=== PATIENT | female | born 1935 | race Caucasian/White ===

== ENCOUNTER 2018-04-23 12:29 | Inpatient (IN) ==
[2018-04-23] MEDS ORDERED: fentaNYL Citrate Inj 100 MCG/2 ML Ampul ONE (12:40)
[2018-04-23] MEDS ORDERED: Magnesium Sulfate Inj 2 GM in Sodium Chlor 0.9% Inj 96 ML IV.SIG ONE (12:51)
[2018-04-23 13:20] LABS: Baso # (Auto) 0.1 th/mm3 (0.0-0.2); Baso % (Auto) 0.8 % (0.0-2.0); Eos # (Auto) 0.1 th/mm3 (0.0-0.4); Eos % (Auto) 1.2 % (0.0-4.0); Hematocrit 31.6 % (35.0-46.0); Hemoglobin 10.4 gm/dL (11.6-15.3); Lymph # (Auto) 3.1 th/mm3 (1.0-4.8); Lymph % (Auto) 36.8 % (9.0-44.0); Mean Corpuscular HGB Conc 32.9 % (32.0-36.0); Mean Corpuscular Hemoglobin 21.5 pg (27.0-34.0); Mean Corpuscular Volume 65.5 fL (80.0-100.0); Mean Platelet Volume 8.8 fL (7.0-11.0); Mono # (Auto) 0.8 th/mm3 (0.0-0.9); Mono % (Auto) 9.2 % (0.0-8.0); Neut # (Auto) 4.4 th/mm3 (1.8-7.7); Platelet Count 261 th/mm3 (150-450); Red Blood Count 4.82 mil/mm3 (4.00-5.30); Red Cell Distribution Width 23.3 % (11.6-17.2); White Blood Count 8.5 th/mm3 (4.0-11.0)
--- NOTE | 2018-04-23 13:20 | ED ---
HPI General Chief Complaint: Arrhythmia / Palpitations Stated Complaint: cardiac complaint Time Seen by Provider: 04/23/18 12:58 Source: patient, family and EMS History of Present Illness HPI narrative: 83 year old female s/p AICD placement presents for evaluation after a fall this morning around 2 AM, and an episode of syncope just prior to arrival. Sister states patient was standing and dropped down to the ground without any notice. Found by EMS to be in ventricular tachycardia and was defibrillated by AICD at least 4 times INTELLIGENCE SPECIALIST with transient return to narrow complex rhythm, however arrives in ventricular tachycardia. Context: Reports AICD discharge Arrhythmia history: Reports AICD Associated symptoms: Reports syncope; Denies chest pain, shortness of breath, nausea, vomiting and diaphoresis Related Data Home Medications Medication Instructions Recorded Confirmed atorvastatin 20 mg PO DAILY 04/23/18 04/23/18 clonazepam [Klonopin] 0.5 mg PO BID PRN 04/23/18 04/23/18 clopidogrel [Plavix] 75 mg PO DAILY 04/23/18 04/23/18 furosemide [Lasix] 40 mg PO BID 04/23/18 04/23/18 lisinopril 20 mg PO BID 04/23/18 04/23/18 losartan 100 mg PO DAILY 04/23/18 04/23/18 metoprolol tartrate 50 mg PO BID 04/23/18 04/23/18 potassium chloride 10 meq PO DAILY 04/23/18 04/23/18 telmisartan [Micardis] 40 mg PO DAILY 04/23/18 04/23/18 tramadol 50 mg PO TID PRN 04/23/18 04/23/18 warfarin [Coumadin] 2.5 mg PO 2XWEEK 04/23/18 04/23/18 warfarin [Coumadin] 5 mg PO 5XW 04/23/18 04/23/18 Allergies Allergy/AdvReac Type Severity Reaction Status Date / Time diltiazem [From Cardizem] Allergy Intermediate Redness of Verified 04/23/18 12: 38 Skin PMFSH Medical History Medical History Cardiac defibrillator in place (Acute) HBP (high blood pressure) (Acute) Surgical History Surgical History Hx of prior ablation treatment (Acute) Social History Social History Substance History: No History of Abuse Second Hand Smoke Exposure: No Smoking Status: Never smoker How Often Do You Have a Drink Containing Alcohol: Never Recent Travel in [facility] within the Last 8 Weeks: No Recent Out of Country Travel within the Last 8 Weeks: No Immunization History Tetanus Immunization: >5 Years Exam Narrative Exam Narrative: GENERAL: Awake and alert, conversant, no acute distress SKIN: Focused skin assessment warm/dry. HEAD: Atraumatic. Normocephalic. EYES: Pupils equal and round. No scleral icterus. No injection or drainage. ENT: No nasal bleeding or discharge. Mucous membranes pink and moist. Mallampati 2 NECK: Trachea midline. No JVD. CARDIOVASCULAR: tachycardic, regular RESPIRATORY: No accessory muscle use. Clear to auscultation. Breath sounds equal bilaterally. GASTROINTESTINAL: Abdomen soft, non-tender, nondistended. Hepatic and splenic margins not palpable. MUSCULOSKELETAL: No obvious deformities. No clubbing. No cyanosis. No edema. NEUROLOGICAL: Awake and alert. No obvious cranial nerve deficits. Motor grossly within normal limits. Normal speech. PSYCHIATRIC: Appropriate mood and affect; insight and judgment normal. Procedures Cardioversion 3: Time out performed cardioversion: No Consent: Emergent Anesthesia: Propofol and Fentanyl Description: Patient defibrillated x3 at 300J for ventricular tachycardia Outcome: No Change Complications: none Procedural Sedation Indications: other (defibrillation) Presedation Evaluation: See physical exam ASA Class: ASA 2 Moderate Systemic Disease Fentanyl dose (mcg): 50 IV Propofol Dose (mgs): 60 Patient Tolerated Procedure: well and no complications Interventions: oxygen applied Course Initial Documented Vital Signs Temperature 97.8 F 04/23/18 12:30 Pulse Rate 158 H 04/23/18 12:30 Respiratory Rate 16 04/23/18 12:30 Blood Pressure 124/75 04/23/18 12:30 Pulse Oximetry 96 04/23/18 12:30 Last Documented Vital Signs Temperature 97.8 F 04/23/18 14:57 Pulse Rate 49 L 04/23/18 14:57 Respiratory Rate 16 04/23/18 14:57 Blood Pressure 99/64 L 04/23/18 14:57 Pulse Oximetry 100 04/23/18 14:57 Critical Care Time Critical Care Time: Yes Total Critical Care Time: 60 Attestation: Aggregate critical care time was 60 minutes. Time to perform other separately billable procedures was not included in the critical care time. My time did not include minutes spent treating any other patients simultaneously or on activities that did not directly contribute to the patient's treatment. The services I provided to this patient were to treat and/or prevent clinically significant deterioration that could result in: [60] I provided critical care services requiring my management, as noted below: Chart data review, documentation time, medication orders and management, vital sign assessments/reviewing monitor data, ordering and reviewing lab tests, ordering and interpreting/reviewing x-rays and diagnostic studies, care of the patient and discussion of the patient with the admitting physicians. Medical Decision Making MDM Narrative Medical decision making narrative: 83-year-old female presents in refractory ventricular tachycardia. Patient given amiodarone bolus, defibrillated x3, diltiazem IV, and magnesium without improvement and then spontaneously converted into a junctional bradycardia with a rate of 50. Unclear etiology of ventricular tachycardia. Discussed with Dr. Uribe, patient's african studies professor, recommends discussion with interventional cardiology as an ischemic event could have caused her arrhythmia. We will also interrogate her AICD. Troponin minimally elevated however this could also be related to the defibrillation that patient received. Will cycle troponins to check for an acute ischemic event Medical Screen Exam Complete: Yes Emergency Medical Condition: Yes Medical Records Medical records reviewed: Yes I reviewed the patient's medical records. Lab Data Lab results reviewed: Yes I reviewed the patient's lab results. Result diagrams: 04/23/18 13:00 04/23/18 13:00 Lab Results 04/23/18 04/23/18 04/23/18 Range/Units 13:00 13:00 13:00 WBC 8.5 (4.0-11.0) th/mm3 RBC 4.82 (4.00-5.30) mil/mm3 Hgb 10.4 L (11.6-15.3) gm/dL Hct 31.6 L (35.0-46.0) % MCV 65.5 L (80.0-100.0) fL MCH 21.5 L (27.0-34.0) pg MCHC 32.9 (32.0-36.0) % RDW 23.3 H (11.6-17.2) % Plt Count 261 (150-450) th/mm3 MPV 8.8 (7.0-11.0) fL Neut % (Auto) 52.0 (16.0-70.0) % Lymph % (Auto) 36.8 (9.0-44.0) % [place] % (Auto) 9.2 H (0.0-8.0) % Eos % (Auto) 1.2 (0.0-4.0) % Baso % (Auto) 0.8 (0.0-2.0) % Neut # (Auto) 4.4 (1.8-7.7) th/mm3 Lymph # (Auto) 3.1 (1.0-4.8) th/mm3 [place] # (Auto) 0.8 (0.0-0.9) th/mm3 Eos # (Auto) 0.1 (0.0-0.4) th/mm3 Baso # (Auto) 0.1 (0.0-0.2) th/mm3 WBC Differential . Differential Comment Auto diff final PT (9.8-11.6) sec INR Ratio APTT (23.4-31.7) sec Sodium 142 (136-145) meq/L Potassium 3.4 L (3.5-5.1) meq/L Chloride 107 (98-107) meq/L Carbon Dioxide 25.1 (21.0-32.0) meq/L Anion Gap 10 (5-15) meq/L BUN 26 H (7-18) mg/dL Creatinine 1.28 H (0.50-1.00) mg/dL Estimated GFR 40 L (>89) mL/min Random Glucose 152 H (74-106) mg/dL Calcium 8.6 (8.5-10.1) mg/dL Total Bilirubin 1.4 H (0.2-1.0) mg/dL AST 31 (15-37) U/L ALT 18 (10-53) U/L Alkaline Phosphatase 66 (45-117) U/L Troponin I 0.09 H (0.02-0.05) ng/mL B-Natriuretic Peptide 820 H (0-100) pg/mL Total Protein 6.7 (6.4-8.2) g/dL Albumin 3.6 (3.4-5.0) g/dL 01/09/19 Range/Units 13:00 WBC (4.0-11.0) th/mm3 RBC (4.00-5.30) mil/mm3 Hgb (11.6-15.3) gm/dL Hct (35.0-46.0) % MCV (80.0-100.0) fL MCH (27.0-34.0) pg MCHC (32.0-36.0) % RDW (11.6-17.2) % Plt Count (150-450) th/mm3 MPV (7.0-11.0) fL Neut % (Auto) (16.0-70.0) % Lymph % (Auto) (9.0-44.0) % [place] % (Auto) (0.0-8.0) % Eos % (Auto) (0.0-4.0) % Baso % (Auto) (0.0-2.0) % Neut # (Auto) (1.8-7.7) th/mm3 Lymph # (Auto) (1.0-4.8) th/mm3 [place] # (Auto) (0.0-0.9) th/mm3 Eos # (Auto) (0.0-0.4) th/mm3 Baso # (Auto) (0.0-0.2) th/mm3 WBC Differential Differential Comment PT 18.1 H (9.8-11.6) sec INR 1.8 Ratio APTT 27.7 (23.4-31.7) sec Sodium (136-145) meq/L Potassium (3.5-5.1) meq/L Chloride (98-107) meq/L Carbon Dioxide (21.0-32.0) meq/L Anion Gap (5-15) meq/L BUN (7-18) mg/dL Creatinine (0.50-1.00) mg/dL Estimated GFR (>89) mL/min Random Glucose (74-106) mg/dL Calcium (8.5-10.1) mg/dL Total Bilirubin (0.2-1.0) mg/dL AST (15-37) U/L ALT (10-53) U/L Alkaline Phosphatase (45-117) U/L Troponin I (0.02-0.05) ng/mL B-Natriuretic Peptide (0-100) pg/mL Total Protein (6.4-8.2) g/dL Albumin (3.4-5.0) g/dL Imaging Data Radiologist's impression: Chest X-Ray 04/23/18 12:58 CONCLUSION: , Cystic cardiomegaly otherwise negative ECG Data EKG Prior to Arrival: Yes Attestation: I personally reviewed and interpreted this ECG as follows: Interpretation: 1. Ventricular tachycardia rate of 179, similar to previous 03/30 #2 sinus seamus, rate 50, no ST or T wave changes Discharge Plan Discharge Disposition Patient Disposition: ED Admit(ED Internal Use Only) Discharge Condition Condition: Critical Discharge Order Discharge Orders: ED Use Only Admit Order (Routine); Ordered 04/23/18 Ordered By: Jazmin Portillo Discharge Details Diagnosis: Ventricular tachycardia Physicians Team ED Provider: Jazmin Portillo Primary Care Provider: UNKNOWN, Attending Provider: Tara Chaparro Other Providers: Sagar Shaikh Status ED Status: Admitted Patient
[2018-04-23] MEDS ORDERED: fentaNYL Citrate Inj 100 MCG/2 ML Ampul IV.PUSH ONE (13:22)
[2018-04-23] MEDS ORDERED: Amiodarone Inj 150 MG in Dextrose 5% in Water Inj 97 ML IV.SIG ONE ×2 (13:22)
[2018-04-23 13:28] LABS: Activated Partial Thrombo Time 27.7 sec (23.4-31.7); INR 1.8 Ratio; Prothrombin Time 18.1 sec (9.8-11.6)
[2018-04-23] MEDS ORDERED: Sod Chloride 0.9% Inj 1,000 ML IV.SIG SCH (13:30)
[2018-04-23 13:35] LABS: Alanine Aminotransferase 18 U/L (10-53); Albumin 3.6 g/dL (3.4-5.0); Anion Gap 10 meq/L (5-15); Aspartate Aminotransferase 31 U/L (15-37); Blood Urea Nitrogen 26 mg/dL (7-18); Calcium 8.6 mg/dL (8.5-10.1); Carbon Dioxide 25.1 meq/L (21.0-32.0); Chloride 107 meq/L (98-107); Glomerular Filtration Rate 40 mL/min (>89); Glucose,Random 152 mg/dL (74-106); Potassium 3.4 meq/L (3.5-5.1); Sodium 142 meq/L (136-145)
[2018-04-23 13:37] LABS: Alkaline Phosphatase 66 U/L (45-117); Total Protein 6.7 g/dL (6.4-8.2); Troponin I 0.09 ng/mL (0.02-0.05)
--- NOTE | 2018-04-23 13:42 | XR ---
EXAM DATE: 04/23/2018 1:32 PM EST AGE/SEX: 83 years / Female INDICATIONS: Chest pain, with pressure and AICD went off. CLINICAL DATA: This is the patient's initial encounter. Patient reports that signs and symptoms have been present for 1 day and indicates a pain score of 8/10. MEDICAL/SURGICAL HISTORY: Cardiovascular disease. Myocardial infarction. Pacemaker. COMPARISON: [facility] [place], CHEST SINGLE AP, 03/26/2016. . FINDINGS: Pacer defibrillator in good position. Mild commentated cardiomegaly. No pneumothorax or congestive fa ilure. Mild degenerative changes about both shoulders. CONCLUSION: , Cystic cardiomegaly otherwise negative Electronically signed by: Jon Ruelas MD Board Certified Radiologist 04/23/2018 1:41 PM EST
[2018-04-23] MEDS ORDERED: clonazePAM 0.5 MG Tablet PO PRN (15:01)
[2018-04-23] MEDS ORDERED: Lidocaine/D5W 2000 mg/500 mL 2,000 MG/500 ML BAG IV.SIG ONE (15:25)
[2018-04-23] MEDS ORDERED: Magnesium Sulfate Inj 40 MEQ/10 ML Vial IV.SIG ONE (15:25)
[2018-04-23] MEDS ORDERED: Potassium Chlor 20 mEq Premix 20 MEQ/100 ML PIGGYBACK IV.SIG ONE (15:30)
[2018-04-23] MEDS ORDERED: Potassium Phosphate 500 MG Soluble Tablet PO PRN ×2 (15:31)
[2018-04-23] MEDS ORDERED: Magnesium Sulfate Inj 2 GM in Sodium Chlor 0.9% Inj 96 ML IV.SIG PRN (15:31)
[2018-04-23] MEDS ORDERED: Potassium Phosphate Inj 30 MMOL in Sodium Chlor 0.9% Inj 250 ML IV.SIG PRN (15:31)
[2018-04-23] MEDS ORDERED: Sodium Phosphate Inj 30 MMOL in Sodium Chlor 0.9% Inj 250 ML IV.SIG PRN (15:31)
[2018-04-23] MEDS ORDERED: Acetaminophen 325 MG Tablet PO PRN (15:31)
[2018-04-23] MEDS ORDERED: Potassium Chlor 40 mEq Premix 40 MEQ/100 ML PIGGYBACK IV.SIG PRN ×2 (15:31)
[2018-04-23] MEDS ORDERED: Potassium Chloride 25 MEQ Effervescent Tablet PO PRN (15:31)
[2018-04-23] MEDS ORDERED: Magnesium Oxide 400 MG Tablet PO PRN (15:31)
[2018-04-23] MEDS ORDERED: Bisacodyl 10 MG Supp RECTAL PRN (15:31)
[2018-04-23] MEDS ORDERED: Potassium Chlor 20 mEq Premix 20 MEQ/100 ML PIGGYBACK IV.SIG PRN ×2 (15:31)
[2018-04-23] MEDS ORDERED: Magnesium Sulfate Inj 4 GM in Sodium Chlor 0.9% Inj 92 ML IV.SIG PRN (15:31)
--- NOTE | 2018-04-23 15:32 | CT ---
EXAM DATE: 04/23/2018 3:26 PM EST AGE/SEX: 83 years / Female INDICATIONS: Patient fell CLINICAL DATA: This is the patient's initial encounter. Patient reports that signs and symptoms have been present for 1 day and indicates a pain score of 0/10. MEDICAL/SURGICAL HISTORY: Cardiovascular disease. Pacemaker. RADIATION DOSE: 18.82 CTDI (mGy) COMPARISON: No prior exams available for comparison. TECHNIQUE: Contiguous axial images were obtained using helical multirow detector technique. The vol umetric data was post-processed with multiplanar reconstruction in oblique axial, sagittal, and coron al planes. Using automated exposure control and adjustment of the mA and/or kV according to patient s ize, radiation dose was kept as low as reasonably achievable to obtain optimal diagnostic quality mehdi ges. DICOM format image data is available electronically for review and comparison. FINDINGS: No significant subluxation or soft tissue swelling is seen. There are chronic degenerative change an d pannus formation at the atlantoaxial joint without any significant compromise to the spinal cord. N o definite fracture is identified for technique. C2-C3: No appreciable compromise to the thecal sac, exiting nerve roots are seen. The neural foramin a are patent bilaterally. No appreciable thecal sac stenosis is seen. Slight bulging disc and hypertr ophic changes are seen with indentation on the thecal sac and no significant compromise to the thecal sac or the exiting nerve roots. C3-C4: Slight bulging disc and hypertrophic changes are seen with indentation on the thecal sac and no significant compromise to the thecal sac or the exiting nerve roots. No appreciable compromise t o the thecal sac, exiting nerve roots are seen. The neural foramina are patent bilaterally. No apprec iable thecal sac stenosis is seen. C4-C5: Slight bulging disc and hypertrophic changes are seen with indentation on the thecal sac and no significant compromise to the thecal sac or the exiting nerve roots. No appreciable compromise t o the thecal sac, exiting nerve roots are seen. The neural foramina are patent bilaterally. No apprec iable thecal sac stenosis is seen. C5-C6: No appreciable compromise to the thecal sac, exiting nerve roots are seen. The neural foramin a are patent bilaterally. No appreciable thecal sac stenosis is seen.Slight bulging disc and hypertro phic changes are seen with indentation on the thecal sac and no significant compromise to the thecal sac or the exiting nerve roots. C6-C7: No appreciable compromise to the thecal sac, exiting nerve roots are seen. The neural foramin a are patent bilaterally. No appreciable thecal sac stenosis is seen.Slight bulging disc and hypertro phic changes are seen with indentation on the thecal sac and no significant compromise to the thecal sac or the exiting nerve roots. C7-T1: No appreciable compromise to the thecal sac, exiting nerve roots are seen. The neural foramin a are patent bilaterally. No appreciable thecal sac stenosis is seen.Slight bulging disc and hypertro phic changes are seen with indentation on the thecal sac and no significant compromise to the thecal sac or the exiting nerve roots. CONCLUSION: Degenerative spondylosis without any significant compromise to the exiting nerve roots o r the thecal sac. Electronically signed by: Mikaela Mims MD Board Certified Radiologist 04/23/2018 3:31 PM EST
[2018-04-23 15:37] LABS: Magnesium 1.9 mg/dL (1.5-2.5)
--- NOTE | 2018-04-23 15:39 | CT ---
EXAM DATE: 04/23/2018 3:23 PM EST AGE/SEX: 83 years / Female INDICATIONS: Patient fell, no complaints of pain CLINICAL DATA: This is the patient's initial encounter. Patient reports that signs and symptoms have been present for 1 day and indicates a pain score of 0/10. MEDICAL/SURGICAL HISTORY: Cardiovascular disease. Pacemaker. RADIATION DOSE: 32.16 CTDI (mGy) COMPARISON: No prior exams available for comparison. TECHNIQUE: CT of the head without contrast. Using automated exposure control and adjustment of the mA and/or kV according to patient size, radiation dose was kept as low as reasonably achievable to ob tain optimal diagnostic quality images. DICOM format image data is available electronically for revi ew and comparison. FINDINGS: There is no evidence for intracranial hemorrhage, mass effect, mass lesions, or edema. The visualize d bony structures appear intact. Slight degree of brain atrophy is seen. Slight periventricular whit e matter changes are seen nonspecific mostly consistent with chronic small vessel ischemic changes. There are no signs of acute infarction for technique. CONCLUSION: Slight chronic small vessel ischemic and atrophic changes. Electronically signed by: Mikaela Mims MD Board Certified Radiologist 04/23/2018 3:38 PM EST
[2018-04-23] MEDS ORDERED: Labetalol HCl Inj 100 MG/20 ML Vial IV.PUSH PRN (16:03)
--- NOTE | 2018-04-23 16:14 | P.HPCC ---
History of Present Illness Service: ICU Primary Care Physician: UNKNOWN Chief Complaint: Chest pain History of Present Illness: 83yF with history of atrial fibrillation s/p ablation, CAD s/p stent in 2000, AICD placed at [facility] in 06/2017 (patient is uncertain why) who presented today when her AICD discharged. Her daughter says that the patient was sitting in a chair when she "grabbed her chest and fell over to the side". The patient says that she didn't feel a sudden pain in her chest but felt "like my heart was pounding really hard and like I was being pinched all over my face". She called 911 and was found to be in V tach (with a pulse) on EMS arrival. Her AICD reportedly fired a total of 3x while en route and she arrived to the ED still in stable VT. She was given an amiodarone bolus and received procedural sedation followed by 3 attempts at defibrillation, after which she went into junctional bradycardia. The patient denies any chest pain at present, denies fever or chills, cough, dyspnea, nausea or vomiting, or current palpitations. She also reports that last night she "must have rolled out of bed" and sustained an injury to the right side of her face, is not sure if she lost consciousness, and is on coumadin for A fib. Cold Saw Operator is Dr. Uribe, last routine outpatient visit was 1-2 days ago. Biotronik AICD. Family history is non-contributory. - Diagnosis (1) AICD discharge (2) Ventricular tachycardia Inpatient Certification: I certify that the inpatient services were ordered in accordance with Medicare regulations governing the order. This includes certification that hospital inpatient services are reasonable and necessary and in the case of services not specified as inpatient-only under 42 CFR 419.22(n), that they are appropriately provided as inpatient services in accordance to with the 2-midnight benchmark under 43 CFR 412.3(e) Estimated Total Length of Stay (Days): 3 Plans for Post Hospital Care: Home Review of Systems All other systems reviewed negative except as stated in HPI Constitutional: Denies fever(s) Eyes: Denies loss of vision Cardiovascular: Reports rapid, pounding, or irregular heartbeat, Denies chest pain Respiratory: Denies cough, Denies shortness of breath Gastrointestinal: Denies abdominal pain Musculoskeletal: Denies back pain Neurologic: Denies confusion PMFSH - History History Provided By: Patient - Medical History Medical History: Medical History (Last Reviewed 04/23/18 @ 15:17 by Tara Chaparro DO) Cardiac defibrillator in place HBP (high blood pressure) - Surgical History Surgical History: Surgical History (Last Reviewed 04/23/18 @ 15:17 by Tara Chaparro DO) Hx of prior ablation treatment - Social History I have reviewed the patient's Social History: Yes - Tobacco History Second Hand Smoke Exposure: No Tobacco Use In Past 30 Days: No Smoking Status: Never smoker - Alcohol History How Often Do You Have a Drink Containing Alcohol: Never - Substance Use History Substance History: No History of Abuse - Travel History Recent Travel in the [place] Within the Last 8 Weeks: No Recent Travel Out of the Country Within the Last 8 Weeks: No - Immunization History Tetanus Immunization: >5 Years Medications and Allergies Active Medications: Active Medications Acetaminophen (Tylenol) 650 mg PO Q6H PRN PRN Reason: PAIN 1-10 AND/OR FEVER >101F Al Hydroxide/Mg Hydroxide (Milk [employer] [place]) 30 ml PO Q12H PRN PRN Reason: Mild Constipation Atorvastatin Calcium (Lipitor) 20 mg PO DAILY DIOMEDES Bisacodyl (Dulcolax Supp) 10 mg RECTAL DAILY PRN PRN Reason: SEVERE CONSITIPATION Chlorhexidine Gluconate (Chlorhexidine 2% Cloth) 3 pack TOPICAL DAILY@0400 DIOMEDES Stop: 04/29/18 03:59 Chlorhexidine Gluconate (Chlorhexidine 2% Cloth) 3 pack TOPICAL DAILY@0400 PRN PRN Reason: Extra cloth needed Stop: 04/29/18 03:59 Clonazepam (Klonopin) 0.5 mg PO BID PRN PRN Reason: Anxiety/SOB Clopidogrel Bisulfate (Plavix) 75 mg PO DAILY DIOMEDES Famotidine (Pepcid) 20 mg PO BID DIOMEDES Famotidine (Pepcid Pf Inj) 20 mg IV.PUSH Q12HR DIOMEDES Furosemide (Lasix) 40 mg PO BID DIOMEDES Amiodarone HCl 450 mg/ (Dextrose) 250 mls @ 33.33 mls/hr IV.CONT TITRATE PRN; Protocol PRN Reason: Per Protocol Last Admin: 04/23/18 13:16 Dose: 1 mg/min, 33.33 mls/hr Potassium Chloride (Kcl 20 Meq Premix Inj) 20 meq in 100 mls @ 50 mls/hr IV.SIG ONCE ONE Stop: 04/23/18 17:29 Magnesium Sulfate 4 gm/ Sodium (Chloride) 100 mls @ 50 mls/hr IV.SIG UNSCH PRN PRN Reason: For Magnesium 0.9 - 1.1 mg/dL Potassium Chloride (Kcl 40 Meq Premix Inj) 40 meq in 100 mls @ 25 mls/hr IV.SIG Q2H PRN PRN Reason: For Potassium 2.8 - 3.2 mEq/L Potassium Chloride (Kcl 20 Meq Premix Inj) 20 meq in 100 mls @ 50 mls/hr IV.SIG Q2H PRN PRN Reason: For Potassium 3.3 - 3.5 mEq/L Potassium Chloride (Kcl 40 Meq Premix Inj) 40 meq in 100 mls @ 25 mls/hr IV.SIG UNSCH PRN PRN Reason: For Potassium 3.3 - 3.5 mEq/L Potassium Chloride (Kcl 20 Meq Premix Inj) 20 meq in 100 mls @ 50 mls/hr IV.SIG Q2H PRN PRN Reason: For Potassium 2.8 - 3.2 mEq/L Potassium Phosphate 30 mmol/ (Sodium Chloride) 260 mls @ 42 mls/hr IV.SIG UNSCH PRN PRN Reason: SEE LABEL COMMENTS Sodium Phosphate 30 mmol/ (Sodium Chloride) 260 mls @ 42 mls/hr IV.SIG UNSCH PRN PRN Reason: For Phosphorus < 2.5 mg/dL Magnesium Sulfate 2 gm/ Sodium (Chloride) 100 mls @ 50 mls/hr IV.SIG UNSCH PRN PRN Reason: For Magnesium 1.2 - 1.6 mg/dL Lactulose (Lactulose Liq) 30 ml PO DAILY PRN PRN Reason: SEVERE CONSITIPATION Magnesium Oxide (Mag-Ox) 800 mg PO UNSCH PRN PRN Reason: For Magnesium 1.2 - 1.6 mg/dL Metoprolol Tartrate (Lopressor) 50 mg PO BID DIOMEDES Potassium Bicarb/Potassium Chloride (K-Lyte Cl Eff) 50 meq PO UNSCH PRN PRN Reason: For Potassium 3.3 - 3.5 mEq/L Potassium Phosphate (K-Phos Original) 2,000 mg PO Q4H PRN PRN Reason: Phosphorus Less Than 2.5 mg/dL Potassium Phosphate (K-Phos Original) 2,000 mg PO UNSCH PRN PRN Reason: SEE LABEL COMMENTS Senna/Docusate Sodium (Anastasia-Colace) 1 tab PO BID DIOMEDES Sennosides (Senokot) 17.2 mg PO Q12H PRN PRN Reason: Moderate Constipation Sodium Chloride (Ns Flush) 2 ml IV.FLUSH UNSCH PRN PRN Reason: FLUSH AFTER USING IV ACCESS Sodium Chloride (Ns Flush) 2 ml IV.FLUSH BID DIOMEDES Sodium Chloride (Ns Flush) 2 ml IV.FLUSH PRN PRN PRN Reason: FLUSH AFTER USING IV ACCESS Warfarin Sodium (Coumadin) 2.5 mg PO MoFr DIOMEDES Warfarin Sodium (Coumadin) 5 mg PO 5XW DIOMEDES Allergies Allergy/AdvReac Type Severity Reaction Status Date / Time diltiazem [From [facility] Allergy Intermediate Redness of Verified 04/23/18 12: 38 Skin Home Medications Medication Instructions Recorded Confirmed Type atorvastatin 20 mg PO DAILY 04/23/18 04/23/18 History clonazepam [Klonopin] 0.5 mg PO BID PRN 04/23/18 04/23/18 History clopidogrel [Plavix] 75 mg PO DAILY 04/23/18 04/23/18 History furosemide [Lasix] 40 mg PO BID 04/23/18 04/23/18 History lisinopril 20 mg PO BID 04/23/18 04/23/18 History losartan 100 mg PO DAILY 04/23/18 04/23/18 History metoprolol tartrate 50 mg PO BID 04/23/18 04/23/18 History potassium chloride 10 meq PO DAILY 04/23/18 04/23/18 History telmisartan [Micardis] 40 mg PO DAILY 04/23/18 04/23/18 History tramadol 50 mg PO TID PRN 04/23/18 04/23/18 History warfarin [Coumadin] 2.5 mg PO 2XWEEK 04/23/18 04/23/18 History warfarin [Coumadin] 5 mg PO 5XW 04/23/18 04/23/18 History Results - Labs CBC & Chem 7: 04/23/18 13:00 04/23/18 13:00 Labs: Short CBC 04/23/18 Range/Units 13:00 WBC 8.5 (4.0-11.0) th/mm3 Hgb 10.4 L (11.6-15.3) gm/dL Hct 31.6 L (35.0-46.0) % Plt Count 261 (150-450) th/mm3 BMP 04/23/18 13:00 Sodium 142 Potassium 3.4 L Chloride 107 Carbon Dioxide 25.1 BUN 26 H Creatinine 1.28 H Calcium 8.6 Cardiac Enzymes 04/23/18 Range/Units 13:00 Troponin I 0.09 H (0.02-0.05) ng/mL Liver Function 04/23/18 Range/Units 13:00 Total Bilirubin 1.4 H (0.2-1.0) mg/dL AST 31 (15-37) U/L ALT 18 (10-53) U/L Alkaline Phosphatase 66 (45-117) U/L Albumin 3.6 (3.4-5.0) g/dL - Imaging Impressions Chest X-Ray 04/23/18 12:58 CONCLUSION: , Cystic cardiomegaly otherwise negative Cervical Spine CT 04/23/18 13:15 CONCLUSION: Degenerative spondylosis without any significant compromise to the exiting nerve roots or the thecal sac. Head CT 04/23/18 13:15 CONCLUSION: Slight chronic small vessel ischemic and atrophic changes. - ECG Attestation: I personally reviewed and interpreted this ECG as follows: Interpretation: EKG #1 (12:34 PM) Rate: 200 BPM Rhythm: Wide-complex monomorphic ventricular tachycardia EKG #2 (12:54 PM), post- defibrillation Rate: 50 BPM Rhythm: Ventricular paced [place]: Left Exam Vital signs: Vital Signs 04/23/18 12:30 04/23/18 12:45 04/23/18 12:58 Temperature 97.8 F 97.8 F Pulse Rate 156 H 157 H 50 L Respiratory Rate 16 20 20 Blood Pressure 124/75 93/56 L 96/56 L Pulse Oximetry 98 99 99 04/23/18 13:01 04/23/18 13:27 04/23/18 13:37 Temperature 97.8 F 97.8 F Pulse Rate 56 L 50 L 50 L Respiratory Rate 20 20 19 Blood Pressure 91/52 L 95/52 L 102/52 L Pulse Oximetry 99 100 100 04/23/18 14:27 04/23/18 14:57 Temperature 97.8 F 97.8 F Pulse Rate 50 L 49 L Respiratory Rate 16 16 Blood Pressure 96/55 L 99/64 L Pulse Oximetry 99 100 Intake & Output 04/22/18 04/23/18 04/23/18 18:59 06:59 18:59 Intake Total 1200 / 1200 Balance 1200 / 1200 Weight 85.275 kg Intake: IV 1200 / 1200 Cordarone Inj 150 MG In D5W Inj 100 / 100 97 ML @ 600 mls/hr IV.SIG ONCE ONE Rx#:[id number] Magnesium Sulfate Inj 2 GM In 100 / 100 NS Inj 96 ML @ 50 mls/hr IV.SIG ONCE ONE Rx#:[id number] NS Inj 1,000 ML @ 1000 mls/hr 1000 / 1000 IV.SIG BOLUS DIOMEDES Rx#:[id number] Narrative: GEN: Well-appearing elderly female sitting up in bed, no acute distress HEENT: Subtle ecchymosis to right face, no facial bone tenderness or deformity, PERRL, no hyphema or proptosis, EOMI NECK: Trachea midline CARDIO: Julien to 50s, V-paced on service or work dispatcher. AICD present in left upper chest, non-tender, well-healed incision. PULM: Clear to auscultation bilaterally ABD/GI: Soft, non-tender in all quadrants EXT/MSK: 2+ pitting edema to knees bilaterally, no calf tenderness SKIN: Warm and well-perfused, no rashes or lesions NEURO: Awake and alert, answers questions appropriately, no slurred speech or aphasia, follows commands, moves all extremities, no focal neuro deficits PSYCH: Appropriate affect Caprini VTE Risk Assessment Caprini VTE Risk Assessment: Moderate/High Risk (score >= 2) VTE Pharmacological Exception Reason: Coagulopathy,INR elevated Caprini Risk Assessment Model: Point Value = 1 Point Value = 2 Point Value = 3 Point Value = 5 Age 41-60 Minor surgery BMI > 25 kg/m2 Swollen legs Varicose veins or History of unexplained or recurrent spontaneous Oral contraceptives or hormone replacement Sepsis (< 1 month) Serious lung disease, including pneumonia (< 1 month) Abnormal pulmonary function Acute myocardial infarction Congestive heart failure (< 1 month) History of inflammatory bowel disease Medical patient at bed rest Age 61-74 Arthroscopic surgery Major open surgery (> 45 min) Laparoscopic surgery (> 45 min) Malignancy Confined to bed (> 72 hours) Immobilizing plaster cast Central venous access Age >= 75 History of VTE Family history of VTE Factor V Leiden Prothrombin [id number] Lupus anticoagulant Anticardiolipin antibodies Elevated serum homocysteine Heparin-induced thrombocytopenia Other congenital or acquired thrombophilia Stroke (< 1 month) Elective arthroplasty Hip, pelvis, or leg fracture Acute spinal cord injury (< 1 month) Prophylaxis Regimen: Total Risk Factor Score Risk Level Prophylaxis Regimen 0-1 Low Early ambulation 2 Moderate Order ONE of the following: *Sequential Compression Device (SCD) *Heparin 5000 units SQ BID 3-4 Higher Order ONE of the following medications: *Heparin 5000 units SQ TID *Enoxaparin/Lovenox 40 mg SQ daily (WT < 150 kg, CrCl > 30 mL/min) *Enoxaparin/Lovenox 30 mg SQ daily (WT < 150 kg, CrCl > 10-29 mL/min) *Enoxaparin/Lovenox 30 mg SQ BID (WT < 150 kg, CrCl > 30 mL/min) AND/OR *Sequential Compression Device (SCD) 5 or more Highest Order ONE of the following medications: *Heparin 5000 units SQ TID (Preferred with Epidurals) *Enoxaparin/Lovenox 40 mg SQ daily (WT < 150 kg, CrCl > 30 mL/min) *Enoxaparin/Lovenox 30 mg SQ daily (WT < 150 kg, CrCl > 10-29 mL/min) *Enoxaparin/Lovenox 30 mg SQ BID (WT < 150 kg, CrCl > 30 mL/min) AND *Sequential Compression Device (SCD) Assessment and Plan - Problem List (1) AICD discharge Code(s): Z45.02 - Encounter for adjustment and management of automatic implantable cardiac defibrillator Status: Acute (2) Ventricular tachycardia Code(s): I47.2 - Ventricular tachycardia Status: Acute - Assessment and Plan Plan: 83yF presenting with VT storm and multiple AICD discharges NEURO: Closed head injury, on anticoagulation -CTH and C spine ordered in ED show no traumatic injuries -Tylenol PRN headache CARDIO: Ventricular tachycardia storm Multiple AICD discharges History of CAD s/p stent History of atrial fibrillation History of essential hypertension Dyslipidemia -ED physician spoke with Dr. Uribe (patient's regular siebel consultant) and Dr. Shaikh (interventional); patient has no emergent need for cardiac cath but will likely need an ischemic workup prior to discharge -B[employer]ronik rep interrogated patient's device- she was in VT storm for approximately 2 hrs, received a total of 12 shocks (5 with success, 9 unsuccessful). * Rep changed her settings so 30J (lower dose shocks) were eliminated and she will now receive 40J shock instead. He also reversed polarity of shocks as this appeared to be more effective at converting her rhythm. -EKGs prior to and following defibrillation reviewed; she is now ventricular paced in the 50s -Troponin 0.09 on admission but patient received multiple attempts at cardioversion/ defibrillation -Obtain 2D echo to eval for EF/ wall motion abnormalities -Continue amiodarone gtt -Continue home beta jaun -Continue coumadin and plavix -Continue statin -Hold KAREEN-I/ ARB for today (see below) -Keep K+ >4.0, Mg++ >2.0 PULM: -No active issues -Incentive spirometer F/E/N, RENAL: Mild hypokalemia Acute vs chronic kidney insufficiency -K+ and Mg++ repleted in ED -ICU electrolyte protocol -Creat 1.28, patient does not know what her baseline kidney function is. Received 1L NS bolus in ED. Recheck in AM. Hold KAREEN-I/ARB -Cardiac diet now, NPO at midnight in case patient needs elective cardiac cath tomorrow PROPH: -PPI -SCDs, coumadin OVERALL: This patient is at risk for continued/ recurrent life-threatening arrhythmia and requires close monitoring in intensive care unit. She had been given amiodarone, her lytes have been corrected, and her AICD settings have been adjusted. If she remains without significant arrhythmias overnight, she can be transferred to the hospitalist service. Counseling/ Coordination of Care: This patient is critically ill with impairment of one or more vital organ systems with a high probability of imminent or life-threatening deterioration. High-complexity medical decision making was required to support vital organ function and/ or prevent deterioration of the patient's condition. Total critical care time spent is 31 minutes giving full attention to this patient. This includes examining the patient, gathering history from someone other than the patient (i.e. chart review), discussing the patient's care with other providers, reviewing the results of all labs and imaging, continuation of anti-arrhythmics, and documentation. Amount of time is separate from teaching, counseling the patient and/or family, and exclusive of procedures. Code Status: Full
[2018-04-23 16:58] LABS: Free T4 (Free Thyroxine) 1.36 ng/dL (0.76-1.46); Thyroid Stimulating Hormone 1.73 uIU/mL (0.358-3.740)
[2018-04-23] MEDS: Furosemide 40 MG Tablet PO SCH (20:12)
[2018-04-23] MEDS: Metoprolol Tartrate 50 MG Tablet PO SCH (20:12)
[2018-04-23] MEDS: Senna/Docusate Sodium 8.6/50 MG Tablet PO SCH (20:13)
[2018-04-23] MEDS ORDERED: Lisinopril 20 MG Tablet PO SCH (21:00)
[2018-04-23] MEDS ORDERED: Famotidine PF Inj 20 MG/2 ML Vial IV.PUSH SCH (21:00)
[2018-04-23] MEDS ORDERED: Famotidine 20 MG Tablet PO SCH (21:00)
[2018-04-24] MEDS: Chlorhexidine Gluconate 2% 1 Pack (2 Cloths) TOPICAL SCH (03:53)
[2018-04-24] MEDS ORDERED: Chlorhexidine Gluconate 2% 1 Pack (2 Cloths) TOPICAL PRN (04:00)
[2018-04-24 06:09] LABS: Baso % (Auto) 0.5 % (0.0-2.0); Eos % (Auto) 0.1 % (0.0-4.0); Hematocrit 35.7 % (35.0-46.0); Hemoglobin 10.4 gm/dL (11.6-15.3); Lymph # (Auto) 1.9 th/mm3 (1.0-4.8); Lymph % (Auto) 19.5 % (9.0-44.0); Mean Corpuscular Hemoglobin 19.4 pg (27.0-34.0); Mean Corpuscular Volume 66.4 fL (80.0-100.0); Mean Platelet Volume 8.6 fL (7.0-11.0); Mono # (Auto) 1.1 th/mm3 (0.0-0.9); Mono % (Auto) 11.3 % (0.0-8.0); Neut # (Auto) 6.8 th/mm3 (1.8-7.7); Neut % (Auto) 68.6 % (16.0-70.0); Platelet Count 276 th/mm3 (150-450); Red Blood Count 5.38 mil/mm3 (4.00-5.30); Red Cell Distribution Width 23.2 % (11.6-17.2); White Blood Count 9.9 th/mm3 (4.0-11.0)
[2018-04-24 06:15] LABS: Mean Corpuscular HGB Conc 29.2 % (32.0-36.0)
[2018-04-24 06:17] LABS: Activated Partial Thrombo Time 29.3 sec (23.4-31.7); INR 2.4 Ratio; Prothrombin Time 24.1 sec (9.8-11.6)
[2018-04-24 06:43] LABS: Alanine Aminotransferase 20 U/L (10-53); Albumin 3.7 g/dL (3.4-5.0); Alkaline Phosphatase 68 U/L (45-117); Anion Gap 14 meq/L (5-15); Aspartate Aminotransferase 37 U/L (15-37); Blood Urea Nitrogen 30 mg/dL (7-18); Calcium 9.4 mg/dL (8.5-10.1); Carbon Dioxide 20.5 meq/L (21.0-32.0); Chloride 106 meq/L (98-107); Glomerular Filtration Rate 31 mL/min (>89); Glucose,Random 95 mg/dL (74-106); Magnesium 2.1 mg/dL (1.5-2.5); Phosphorus 4.7 mg/dL (2.5-4.9); Potassium 4.3 meq/L (3.5-5.1); Sodium 140 meq/L (136-145); Total Protein 6.5 g/dL (6.4-8.2)
--- NOTE | 2018-04-24 08:05 | P.CONCA ---
History of Present Illness Primary Care Provider: UNKNOWN Chief Complaint: Chest pain History of Present Illness: 83-year-old female with ischemic cardiomyopathy, recurrent VT s/p AICD with Dr. Mckenzie 05/2017, paroxysmal A. fib on warfarin, HTN, HLD, CKD. Patient reports she remembers sitting in a chair yesterday and felt the sudden jolt to her chest and states that she fell over in her chair. She remembers being shocked by her to fibril 3 times as well in the ambulance in route. She is found to be in PT in the ED with successful defibrillation, started on amiodarone gtt. Patient reports she is felt well overnight with no chest pain, shortness of breath, palpitations. Telemetry monitoring currently shows NSR, 3 episodes of NSVT noted overnight 5 beats, 3 beats, 12 beats. The patient has been complaining of dyspnea on exertion over the past few months. In February she had echocardiogram with EF 40%, global hypokinesis with regional wall motion abnormalities. Lexiscan in February showed no evidence of ischemia. She saw Dr. Uribe as outpatient this week and her Lasix dose was increased due to lower extremity swelling, no noted events on defibrillator check at that time. Lower extremity swelling improved. She denies any recent illness. No significant electrode abnormalities upon admission. Review of Systems All other systems reviewed negative except as stated in HPI [facility] - History History Provided By: Patient, Medical Record - Medical History Medical History: Medical History (Last Updated 04/24/18 @ 08:03 by LUL Martinez) CAD (coronary artery disease) Cardiac defibrillator in place HBP (high blood pressure) History of MRSA infection Onset Date: ~04/23/18 Ischemic cardiomyopathy Paroxysmal atrial fibrillation - Surgical History Surgical History: Surgical History (Last Updated 04/24/18 @ 08:03 by LUL Martinez) AICD (automatic cardioverter/defibrillator) present Hx of prior ablation treatment - Tobacco History Second Hand Smoke Exposure: No Tobacco Use In Past 30 Days: No Smoking Status: Never smoker - Alcohol History How Often Do You Have a Drink Containing Alcohol: Never - Substance Use History Substance History: No History of Abuse - Travel History Recent Travel in the [place] Within the Last 8 Weeks: No Recent Travel Out of the Country Within the Last 8 Weeks: No - Immunization History Tetanus Immunization: >5 Years Hx Influenza Vaccine This Season: No Medications and Allergies Allergies Allergy/AdvReac Type Severity Reaction Status Date / Time diltiazem [From [facility]] Allergy Intermediate Redness of Verified 04/23/18 12: 38 Skin Home Medications Medication Instructions Recorded Confirmed Type atorvastatin 20 mg PO DAILY 04/23/18 04/23/18 History clonazepam [Klonopin] 0.5 mg PO BID PRN 04/23/18 04/23/18 History clopidogrel [Plavix] 75 mg PO DAILY 04/23/18 04/23/18 History furosemide [Lasix] 40 mg PO BID 04/23/18 04/23/18 History lisinopril 20 mg PO BID 04/23/18 04/23/18 History losartan 100 mg PO DAILY 04/23/18 04/23/18 History metoprolol tartrate 50 mg PO BID 04/23/18 04/23/18 History potassium chloride 10 meq PO DAILY 04/23/18 04/23/18 History telmisartan [Micardis] 40 mg PO DAILY 04/23/18 04/23/18 History tramadol 50 mg PO TID PRN 04/23/18 04/23/18 History warfarin [Coumadin] 2.5 mg PO 2XWEEK 04/23/18 04/23/18 History warfarin [Coumadin] 5 mg PO 5XW 04/23/18 04/23/18 History Active Medications: Active Medications Acetaminophen (Tylenol) 650 mg PO Q6H PRN PRN Reason: PAIN 1-10 AND/OR FEVER >101F Last Admin: 04/24/18 01:21 Dose: 650 mg Al Hydroxide/Mg Hydroxide (Milk Of Alvaro Liq) 30 ml PO Q12H PRN PRN Reason: Mild Constipation Atorvastatin Calcium (Lipitor) 20 mg PO DAILY DIOMEDES Bisacodyl (Dulcolax Supp) 10 mg RECTAL DAILY PRN PRN Reason: SEVERE CONSITIPATION Chlorhexidine Gluconate (Chlorhexidine 2% Cloth) 3 pack TOPICAL DAILY@0400 [facility] Stop: 04/29/18 03:59 Last Admin: 04/24/18 03:53 Dose: 3 pack Chlorhexidine Gluconate (Chlorhexidine 2% Cloth) 3 pack TOPICAL DAILY@0400 PRN PRN Reason: Extra cloth needed Stop: 04/29/18 03:59 Clonazepam (Klonopin) 0.5 mg PO BID PRN PRN Reason: Anxiety/SOB Clopidogrel Bisulfate (Plavix) 75 mg PO DAILY [facility] Famotidine (Pepcid) 20 mg PO BID [facility] Last Admin: 04/23/18 20:13 Dose: 20 mg Famotidine (Pepcid Pf Inj) 20 mg IV.PUSH Q12HR [facility] Last Admin: 04/23/18 20:13 Dose: Not Given Furosemide (Lasix) 40 mg PO BID [facility] Last Admin: 04/23/18 20:12 Dose: 40 mg Amiodarone HCl 450 mg/ (Dextrose) 250 mls @ 33.33 mls/hr IV.CONT TITRATE PRN; Protocol PRN Reason: Per Protocol Last Admin: 04/23/18 22:33 Dose: 0.5 mg/min, 16.66 mls/hr Magnesium Sulfate 4 gm/ Sodium (Chloride) 100 mls @ 50 mls/hr IV.SIG UNSCH PRN PRN Reason: For Magnesium 0.9 - 1.1 mg/dL Potassium Chloride (Kcl 40 Meq Premix Inj) 40 meq in 100 mls @ 25 mls/hr IV.SIG Q2H PRN PRN Reason: For Potassium 2.8 - 3.2 mEq/L Potassium Chloride (Kcl 20 Meq Premix Inj) 20 meq in 100 mls @ 50 mls/hr IV.SIG Q2H PRN PRN Reason: For Potassium 3.3 - 3.5 mEq/L Potassium Chloride (Kcl 40 Meq Premix Inj) 40 meq in 100 mls @ 25 mls/hr IV.SIG UNSCH PRN PRN Reason: For Potassium 3.3 - 3.5 mEq/L Potassium Chloride (Kcl 20 Meq Premix Inj) 20 meq in 100 mls @ 50 mls/hr IV.SIG Q2H PRN PRN Reason: For Potassium 2.8 - 3.2 mEq/L Potassium Phosphate 30 mmol/ (Sodium Chloride) 260 mls @ 42 mls/hr IV.SIG UNSCH PRN PRN Reason: SEE LABEL COMMENTS Sodium Phosphate 30 mmol/ (Sodium Chloride) 260 mls @ 42 mls/hr IV.SIG UNSCH PRN PRN Reason: For Phosphorus < 2.5 mg/dL Magnesium Sulfate 2 gm/ Sodium (Chloride) 100 mls @ 50 mls/hr IV.SIG UNSCH PRN PRN Reason: For Magnesium 1.2 - 1.6 mg/dL Labetalol HCl (Trandate Inj) 10 mg IV.PUSH Q6H PRN PRN Reason: SBP>180, DBP>100, HR>65 Lactulose (Lactulose Liq) 30 ml PO DAILY PRN PRN Reason: SEVERE CONSITIPATION Magnesium Oxide (Mag-Ox) 800 mg PO UNSCH PRN PRN Reason: For Magnesium 1.2 - 1.6 mg/dL Metoprolol Tartrate (Lopressor) 50 mg PO BID [facility] Last Admin: 04/23/18 20:12 Dose: 50 mg Ondansetron HCl (Zofran Inj) 4 mg IV.PUSH Q6H PRN PRN Reason: NAUSEA Last Admin: 04/23/18 22:32 Dose: 4 mg Potassium Bicarb/Potassium Chloride (K-Lyte Cl Eff) 50 meq PO UNSCH PRN PRN Reason: For Potassium 3.3 - 3.5 mEq/L Potassium Phosphate (K-Phos Original) 2,000 mg PO Q4H PRN PRN Reason: Phosphorus Less Than 2.5 mg/dL Potassium Phosphate (K-Phos Original) 2,000 mg PO UNSCH PRN PRN Reason: SEE LABEL COMMENTS Senna/Docusate Sodium (Anastasia-Colace) 1 tab PO BID [facility] Last Admin: 04/23/18 20:13 Dose: Not Given Sennosides (Senokot) 17.2 mg PO Q12H PRN PRN Reason: Moderate Constipation Sodium Chloride (Ns Flush) 2 ml IV.FLUSH BID [facility] Last Admin: 04/23/18 20:13 Dose: 2 ml Sodium Chloride (Ns Flush) 2 ml IV.FLUSH PRN PRN PRN Reason: FLUSH AFTER USING IV ACCESS Warfarin Sodium (Coumadin) 2.5 mg PO [facility] Warfarin Sodium (Coumadin) 5 mg PO SuTuWeThSa [facility] Last Admin: 04/23/18 16:15 Dose: 5 mg Exam Vital signs: Vital Signs 04/23/18 12:30 04/23/18 12:45 04/23/18 12:58 Temperature 97.8 F 97.8 F Pulse Rate 156 H 157 H 50 L Respiratory Rate 16 20 20 Blood Pressure 124/75 93/56 L 96/56 L Pulse Oximetry 98 99 99 04/23/18 13:01 04/23/18 13:27 04/23/18 13:37 Temperature 97.8 F 97.8 F Pulse Rate 56 L 50 L 50 L Respiratory Rate 20 20 19 Blood Pressure 91/52 L 95/52 L 102/52 L Pulse Oximetry 99 100 100 04/23/18 14:27 04/23/18 14:57 04/23/18 16:10 Temperature 97.8 F 97.8 F 97.8 F Pulse Rate 50 L 49 L 53 L Respiratory Rate 16 16 17 Blood Pressure 96/55 L 99/64 L 136/70 Pulse Oximetry 99 100 99 04/23/18 17:00 04/23/18 17:48 04/23/18 18:00 Temperature 97.8 F 98.6 F Pulse Rate 62 65 58 L Respiratory Rate 16 36 H 30 H Blood Pressure 110/58 L 117/80 Pulse Oximetry 98 95 96 04/23/18 18:31 04/23/18 19:00 04/23/18 20:00 Temperature 97.6 F Pulse Rate 109 H 62 94 H Respiratory Rate 49 H 23 28 H Blood Pressure 121/89 128/72 141/67 H Pulse Oximetry 95 100 100 04/23/18 20:01 04/23/18 20:30 04/23/18 21:00 Temperature Pulse Rate 64 64 67 Respiratory Rate 25 H 35 H 34 H Blood Pressure 137/92 H 147/84 H Pulse Oximetry 99 100 99 04/23/18 21:01 04/23/18 21:31 04/23/18 22:00 Temperature Pulse Rate 67 66 66 Respiratory Rate 30 H 33 H 25 H Blood Pressure 147/84 H 147/74 H 139/77 Pulse Oximetry 92 L 96 98 04/23/18 22:30 04/23/18 23:00 04/23/18 23:30 Temperature Pulse Rate 67 65 63 Respiratory Rate 40 H 25 H 26 H Blood Pressure 140/69 126/70 127/70 Pulse Oximetry 100 97 96 04/24/18 00:00 04/24/18 00:01 04/24/18 00:30 Temperature 98.2 F Pulse Rate 63 62 61 Respiratory Rate 23 27 H 23 Blood Pressure 142/67 H 142/67 H 142/65 H Pulse Oximetry 96 99 97 04/24/18 01:00 04/24/18 01:01 04/24/18 01:31 Temperature Pulse Rate 66 68 67 Respiratory Rate 27 H 32 H 24 Blood Pressure 148/76 H 148/76 H 158/72 H Pulse Oximetry 93 L 95 99 04/24/18 02:00 04/24/18 02:02 04/24/18 02:30 Temperature Pulse Rate 69 65 66 Respiratory Rate 35 H 34 H 23 Blood Pressure 130/97 H 130/97 H 133/90 Pulse Oximetry 90 L 91 L 94 L 04/24/18 03:00 04/24/18 03:31 04/24/18 04:00 Temperature 97.9 F Pulse Rate 67 65 69 Respiratory Rate 24 24 19 Blood Pressure 149/80 H 138/83 148/98 H Pulse Oximetry 99 90 L 96 04/24/18 04:31 04/24/18 05:00 04/24/18 05:01 Temperature Pulse Rate 68 66 67 Respiratory Rate 33 H 27 H 24 Blood Pressure 118/80 152/91 H 152/91 H Pulse Oximetry 94 L 96 98 04/24/18 05:30 04/24/18 06:00 04/24/18 06:30 Temperature Pulse Rate 64 64 66 Respiratory Rate 21 28 H 20 Blood Pressure 130/70 130/75 131/68 Pulse Oximetry 98 89 L 96 04/24/18 07:00 Temperature Pulse Rate 65 Respiratory Rate 26 H Blood Pressure 132/64 Pulse Oximetry 94 L Intake & Output 04/23/18 04/24/18 04/24/18 18:59 06:59 18:59 Intake Total 1550 / 1550 400 / 400 Output Total 0 / 0 300 / 300 Balance 1550 / 1550 100 / 100 Weight 202 lb 13.204 oz 201 lb 11.567 oz Intake: IV 1200 / 1200 350 / 350 Cordarone Inj 450 MG In D5W Inj 250 / 250 241 ML @ 1 MG/MIN 33.33 mls/hr IV.CONT TITRATE PRN Rx#: [id number] Cordarone Inj 150 MG In D5W Inj 100 / 100 97 ML @ 600 mls/hr IV.SIG ONCE ONE Rx#:[id number] Magnesium Sulfate Inj 2 GM In 100 / 100 NS Inj 96 ML @ 50 mls/hr IV.SIG ONCE ONE Rx#:[id number] KCl 20 mEq Premix Inj 20 meq In 100 / 100 100 ml @ 50 mls/hr IV.SIG ONCE ONE Rx#:[id number] NS Inj 1,000 ML @ 1000 mls/hr 1000 / 1000 IV.SIG BOLUS DIOMEDES Rx#:[id number] Oral 350 / 350 50 / 50 Output: Urine 0 / 0 300 / 300 Other: # Voids 2 Date of Last Bowel Movement 04/22/18 Weight On Admission 202 lb 13.204 oz Narrative: GENERAL: Well-developed well-nourished. In no acute distress. NECK: No carotid bruits. No JVD. CARDIOVASCULAR: Regular rate and rhythm. No murmur appreciated. RESPIRATORY: No accessory muscle use. Clear to auscultation. Breath sounds equal bilaterally. MUSCULOSKELETAL: No clubbing or cyanosis. No edema. NEUROLOGICAL: Awake and alert. Normal speech. Results 04/24/18 05:30 04/24/18 05:30 Cardiac Enzymes 04/23/18 04/23/18 04/23/18 Range/Units 13:00 13:00 16:28 AST 31 (15-37) U/L Troponin I 0.09 H 0.25 H D (0.02-0.05) ng/mL B-Natriuretic Peptide 820 H (0-100) pg/mL 04/23/18 04/24/18 Range/Units 23:10 05:30 AST 37 (15-37) U/L Troponin I 0.38 H D (0.02-0.05) ng/mL B-Natriuretic Peptide (0-100) pg/mL Coagulation 04/23/18 04/23/18 04/24/18 Range/Units 13:00 13:00 05:30 PT 18.1 H 24.1 H (9.8-11.6) sec APTT 27.7 29.3 (23.4-31.7) sec B-Natriuretic Peptide 820 H (0-100) pg/mL CBC 04/23/18 04/24/18 Range/Units 13:00 05:30 WBC 8.5 9.9 (4.0-11.0) th/mm3 RBC 4.82 5.38 H (4.00-5.30) mil/mm3 Hgb 10.4 L 10.4 L (11.6-15.3) gm/dL Hct 31.6 L 35.7 (35.0-46.0) % Plt Count 261 276 (150-450) th/mm3 Neut # (Auto) 4.4 6.8 (1.8-7.7) th/mm3 Lymph # (Auto) 3.1 1.9 (1.0-4.8) th/mm3 Alfalfa # (Auto) 0.8 1.1 H (0.0-0.9) th/mm3 Eos # (Auto) 0.1 0.0 (0.0-0.4) th/mm3 Baso # (Auto) 0.1 0.0 (0.0-0.2) th/mm3 Comprehensive Metabolic Panel 04/23/18 04/24/18 Range/Units 13:00 05:30 Sodium 142 140 (136-145) meq/L Potassium 3.4 L 4.3 D (3.5-5.1) meq/L Chloride 107 106 (98-107) meq/L Carbon Dioxide 25.1 20.5 L (21.0-32.0) meq/L BUN 26 H 30 H (7-18) mg/dL Creatinine 1.28 H 1.61 H (0.50-1.00) mg/dL Calcium 8.6 9.4 D (8.5-10.1) mg/dL AST 31 37 (15-37) U/L ALT 18 20 (10-53) U/L Alkaline Phosphatase 66 68 (45-117) U/L Total Protein 6.7 6.5 (6.4-8.2) g/dL Albumin 3.6 3.7 (3.4-5.0) g/dL Intake and Output 04/23/18 04/24/18 04/24/18 22:59 06:59 14:59 Intake Total 600 / 600 150 / 150 Output Total 0 / 0 300 / 300 Balance 600 / 600 -150 / -150 Intake: IV 250 / 250 100 / 100 Cordarone Inj 450 MG In D5W Inj 250 / 250 241 ML @ 1 MG/MIN 33.33 mls/hr IV.CONT TITRATE PRN Rx#: [id number] KCl 20 mEq Premix Inj 20 meq In 100 / 100 100 ml @ 50 mls/hr IV.SIG ONCE ONE Rx#:[id number] Oral 350 / 350 50 / 50 Output: Urine 0 / 0 300 / 300 Other: # Voids 2 Date of Last Bowel Movement 04/22/18 04/22/18 Weight 202 lb 13.204 oz 201 lb 11.567 oz Weight On Admission 202 lb 13.204 oz - Imaging and Cardiology Imaging: Impressions Chest X-Ray 04/23/18 12:58 CONCLUSION: , Cystic cardiomegaly otherwise negative Cervical Spine CT 04/23/18 13:15 CONCLUSION: Degenerative spondylosis without any significant compromise to the exiting nerve roots or the thecal sac. Head CT 04/23/18 13:15 CONCLUSION: Slight chronic small vessel ischemic and atrophic changes. Assessment and Plan - Plan 83-year-old female with ischemic cardiomyopathy, recurrent VT s/p AICD with Dr. Mckenzie 05/2017, paroxysmal A. fib on warfarin, HTN, HLD, CKD who presented with recurrent VT with ultimately successful defibrillation. Ventricular tachycardia: Recent normal ischemic workup. Continue metoprolol and amiodarone gtt. Consult electrophysiology. Paroxysmal atrial fibrillation: Hold warfarin pending possible EP procedure. Discussed Condition With: Patient with RN at bedside, hospitalist, Dr. Gonsales - Attending Attestation recent ischemic workup negative ICD in place recurrent VT on amio gtt consult EP will sign off call with questions
--- NOTE | 2018-04-24 08:23 | P.PNIM ---
Subjective Interval history: asking for food. no sob. feeling better Physical Exam Vital signs: Last Vital Signs Temp 97.9 F 04/24/18 04:00 Pulse 65 04/24/18 07:00 Resp 26 H 04/24/18 07:00 BP 132/64 04/24/18 07:00 Pulse Ox 94 L 04/24/18 07:00 Narrative: heart irreg lung cta abd s/nt ext no edema Results Labs CBC & Chem 7: 04/24/18 05:30 04/24/18 05:30 Assessment and Plan Assessment (1) Ventricular tachycardia: Code(s): I47.2 - Ventricular tachycardia Status: Acute (2) AICD discharge: Code(s): Z45.02 - Encounter for adjustment and management of automatic implantable cardiac defibrillator Status: Acute (3) Afib: Code(s): I48.91 - Unspecified atrial fibrillation Status: Chronic (4) CAD (coronary artery disease): Code(s): I25.10 - Atherosclerotic heart disease of [place] coronary artery without angina pectoris Status: Chronic (5) CKD (chronic kidney disease) stage 3, GFR 30-59 ml/min: Code(s): N18.3 - Chronic kidney disease, stage 3 (moderate) Status: Chronic Plan Ventricular tachycardia Multiple AICD discharges History of CAD s/p stenting atrial fibrillation hypertension Dyslipidemia ckd 3 -Pt had recent echo EF 40% and nml lexiscan neg for ischemia in February per cardiology. -[employer] rep interrogated patient's device- she was in VT storm for approximately 2 hrs, received a total of 12 shocks (5 with success, 9 unsuccessful). Rep changed her settings so 30J (lower dose shocks) were eliminated and she will now receive 40J shock instead. He also reversed polarity of shocks as this appeared to be more effective at converting her rhythm.s -Troponin elevated but patient received multiple attempts at cardioversion/ defibrillation -Continue amiodarone gtt -Continue home beta jaun -cont plavix. coumadin to be held per cardiology -Continue statin -monitor in ICU Progress Note: Quality VTE Deep Vein Thrombosis/Pulmonary Embolism Present on Admission: No
[2018-04-24] MEDS ORDERED: TELMISARTAN 40 MG PO SCH (09:00)
[2018-04-24] MEDS ORDERED: Non-Formulary Drug (Losartan [Losartan] 100 MG) PO SCH (09:00)
[2018-04-24] MEDS: Famotidine 20 MG Tablet PO SCH ×3 (09:59→20:09)
[2018-04-24] MEDS: Furosemide 40 MG Tablet PO SCH ×2 (09:59→20:08)
[2018-04-24] MEDS: Senna/Docusate Sodium 8.6/50 MG Tablet PO SCH ×2 (10:00→20:08)
[2018-04-24] MEDS: Metoprolol Tartrate 50 MG Tablet PO SCH ×2 (10:00→20:08)
[2018-04-24] MEDS: Famotidine PF Inj 20 MG/2 ML Vial IV.PUSH SCH ×2 (10:00→20:09)
--- NOTE | 2018-04-24 16:18 | ECHRPT ---
Indication: Cardiomyopathy CONCLUSIONS Normal left ventricular size. Mild concentric left ventricular hypertrophy. The left ventricular systolic function is moderately reduced with an estimated ejection fraction in the range of 40-45%. A pacemaker wire is noted. The left atrial size is mildly dilated. Mild mitral valve regurgitation. Aortic valve sclerosis is present. There is mild tricuspid valve regurgitation. The estimated pulmonary arterial pressure is 22 mmHg. Trivial pulmonary valve regurgitation. BP: 119 / 57 HR: 65 Rhythm: MEASUREMENTS (Male / Female) Normal Values Technical Quality:Technically difficult study 2D ECHO LV Diastolic Diameter PLAX 4.4 cm 4.2 - 5.9 / 3.9 - 5.3 cm LV Systolic Diameter PLAX 3.4 cm IVS Diastolic Thickness 1.2 cm 0.6 - 1.0 / 0.6 - 0.9 cm LVPW Diastolic Thickness 1.2 cm 0.6 - 1.0 / 0.6 - 0.9 cm LV Relative Wall Thickness 0.5 RV Internal Dim ED PLAX 4.9 cm LVOT Diameter 1.8 cm Aortic Root Diameter 3.2 cm LA Systolic Diameter LX 3.9 cm 3.0 - 4.0 / 2.7 - 3.8 cm M-MODE AV Cusp Separation MM 1.3 cm DOPPLER AV Peak Velocity 116.0 cm/s AV Peak Gradient 5.4 mmHg LVOT Peak Velocity 78.5 cm/s LVOT Peak Gradient 2.5 mmHg AV Area Cont Eq pk 1.7 cm Mitral E Point Velocity 61.7 cm/s Mitral A Point Velocity 29.6 cm/s Mitral E to A Ratio 2.1 LV E' Lateral Velocity 9.2 cm/s Mitral E to LV E' Lateral Ratio 6.7 LV E' Septal Velocity 6.0 cm/s Mitral E to LV E' Septal Ratio 10.2 TR Peak Velocity 171.0 cm/s TR Peak Gradient 11.7 mmHg Right Atrial Pressure 10.0 mmHg Pulmonary Artery Systolic Pressu 21.7 mmHg Right Ventricular Systolic Press 21.7 mmHg PV Peak Velocity 62.4 cm/s PV Peak Gradient 1.6 mmHg FINDINGS LEFT VENTRICLE Normal left ventricular size. Mild concentric left ventricular hypertrophy. The left ventricular systolic function is moderately reduced with an estimated ejection fraction in the range of 40-45%. RIGHT VENTRICLE A pacemaker wire is noted. LEFT ATRIUM The left atrial size is mildly dilated. RIGHT ATRIUM The right atrial size is normal. ATRIAL SEPTUM Normal atrial septal thickness without atrial level shunting by limited color doppler interrogation. AORTA The aortic root and proximal ascending aorta are normal in size on limited imaging. MITRAL VALVE Mild mitral valve regurgitation. AORTIC VALVE Trileaflet aortic valve. Aortic valve sclerosis is present. TRICUSPID VALVE There is mild tricuspid valve regurgitation. The estimated pulmonary arterial pressure is 22 mmHg. PULMONARY VALVE Trivial pulmonary valve regurgitation. VESSELS The inferior vena cava is normal in size. PERICARDIUM No pericardial effusion. Oziel Bolton MD, FACC, FSCAI (Electronically Signed) Final Date:24 April 2018 16:17
--- NOTE | 2018-04-24 17:32 | ECG ---
Date Performed: 04/23/2018 Time Performed: 12:54:47 PTAGE: 83 years EKG: ELECTRONIC VENTRICULAR PACEMAKER When compared to previous tracing,paced rhythm has replace d Ventricular tachycardia. ABNORMAL RHYTHM ECG PREVIOUS TRACING : 04/23/2018 12.34.01 DOCTOR: Luis Miguel Uribe Interpretating Date/Time 04/24/2018 17:31:36
--- NOTE | 2018-04-24 17:32 | ECG ---
Date Performed: 04/23/2018 Time Performed: 12:34:01 PTAGE: 83 years EKG: Ventricular tachycardia with what appears to be overdrive pacing. MARKED LEFT AXIS DEVIATIO N LEFT BUNDLE BRANCH BLOCK When compared to previous tracing, overdrive pacing is now Noted. ABNORMAL ECG PREVIOUS TRACING : 03/26/2016 10.01.41 DOCTOR: Luis Miguel Uribe Interpretating Date/Time 04/24/2018 17:29:57
[2018-04-25 06:31] LABS: Baso # (Auto) 0.1 th/mm3 (0.0-0.2); Baso % (Auto) 0.7 % (0.0-2.0); Eos % (Auto) 0.1 % (0.0-4.0); Hematocrit 40.5 % (35.0-46.0); Hemoglobin 11.6 gm/dL (11.6-15.3); Lymph # (Auto) 2.1 th/mm3 (1.0-4.8); Lymph % (Auto) 14.8 % (9.0-44.0); Mean Corpuscular Hemoglobin 19.8 pg (27.0-34.0); Mean Corpuscular Volume 69.2 fL (80.0-100.0); Mean Platelet Volume 8.6 fL (7.0-11.0); Mono # (Auto) 1.7 th/mm3 (0.0-0.9); Mono % (Auto) 12.3 % (0.0-8.0); Neut % (Auto) 72.1 % (16.0-70.0); Platelet Count 228 th/mm3 (150-450); Red Blood Count 5.86 mil/mm3 (4.00-5.30); Red Cell Distribution Width 22.4 % (11.6-17.2); White Blood Count 13.9 th/mm3 (4.0-11.0)
[2018-04-25 06:32] LABS: Mean Corpuscular HGB Conc 28.6 % (32.0-36.0)
[2018-04-25] MEDS: Chlorhexidine Gluconate 2% 1 Pack (2 Cloths) TOPICAL SCH (06:37)
[2018-04-25 07:22] LABS: Alanine Aminotransferase 142 U/L (10-53); Alkaline Phosphatase 70 U/L (45-117); Anion Gap 16 meq/L (5-15); Aspartate Aminotransferase 217 U/L (15-37); Blood Urea Nitrogen 37 mg/dL (7-18); Calcium 9.7 mg/dL (8.5-10.1); Carbon Dioxide 20.6 meq/L (21.0-32.0); Chloride 101 meq/L (98-107); Glomerular Filtration Rate 25 mL/min (>89); Glucose,Random 69 mg/dL (74-106); Magnesium 2.3 mg/dL (1.5-2.5); Phosphorus 4.8 mg/dL (2.5-4.9); Potassium 4.2 meq/L (3.5-5.1); Sodium 138 meq/L (136-145)
[2018-04-25] MEDS: Famotidine PF Inj 20 MG/2 ML Vial IV.PUSH SCH (08:30)
[2018-04-25] MEDS: Furosemide 40 MG Tablet PO SCH (08:36)
[2018-04-25] MEDS: Metoprolol Tartrate 50 MG Tablet PO SCH (08:36)
[2018-04-25] MEDS: Senna/Docusate Sodium 8.6/50 MG Tablet PO SCH ×2 (08:37→20:10)
[2018-04-25] MEDS: Famotidine 20 MG Tablet PO SCH ×2 (08:38→20:10)
[2018-04-25 09:03] LABS: INR 5.3 Ratio; Prothrombin Time 52.8 sec (9.8-11.6)
--- NOTE | 2018-04-25 09:29 | P.PNIM ---
Subjective Interval history: pt doing ok Physical Exam Vital signs: Last Vital Signs Temp 97.6 F 04/25/18 08:00 Pulse 66 04/25/18 09:00 Resp 18 04/25/18 09:00 BP 136/72 04/25/18 06:48 Pulse Ox 95 04/25/18 09:00 Narrative: heart irreg lung cta abd s/nt ext no edema Results Labs CBC & Chem 7: 04/25/18 05:48 04/25/18 05:43 Assessment and Plan Plan Ventricular tachycardia Multiple AICD discharges History of CAD s/p stenting atrial fibrillation hypertension Dyslipidemia ckd 3. mild acute worsening. -Pt had recent echo EF 40% and nml lexiscan neg for ischemia in February per cardiology. -[employer] rep interrogated patient's device- she was in VT storm for approximately 2 hrs, received a total of 12 shocks (5 with success, 9 unsuccessful). Rep changed her settings so 30J (lower dose shocks) were eliminated and she will now receive 40J shock instead. He also reversed polarity of shocks as this appeared to be more effective at converting her rhythm.s -Troponin elevated but patient received multiple attempts at cardioversion/ defibrillation -discussed with Dr Mckenzie at bedside. dc iv amio and start po amiodarone. if controlled can dc over the weekend. hold off ablation as is pt request -Continue home beta jaun -cont plavix. coumadin on hold for supratherapeutic level. -Continue statin - gentle ivf and hold lasix. recheck cr in AM. Progress Note: Quality VTE Deep Vein Thrombosis/Pulmonary Embolism Present on Admission: No
--- NOTE | 2018-04-25 09:39 | MB ---
cc: Anel Mckenzie MD,José Manuel Dorado,Frank Orellana MD DATE: 04/25/2018 REFERRING PHYSICIAN: José Manuel Gonsales MD, and Frank Dorado MD. Consultation management of VT. HISTORY OF PRESENT ILLNESS: Ms. Roberto is an 83-year-old lady who presented to [facility] with episode of syncope. The patient was found to have multiple episodes of VT, some of them were terminated by ATP. I did review the Biotronik interrogation. ICD was reprogrammed. It is a single-chamber ICD. It was reprogrammed to 40 joule shock for the VTs. The patient was admitted so has been put on amiodarone drip now 0.5 mg per minute. No further episodes of VT. When the patient was admitted, potassium was low. The potassium has been supplemented. I also reviewed the labs. Creatinine has been up slightly to 1.9. Currently, the patient is n.p.o. The patient denied any complaints at this minute. Again, the patient does have dilated cardiomyopathy with ejection fraction of 40% to 45% by latest echocardiogram. ALLERGIES: CARDIZEM. PAST SURGICAL HISTORY: As above, also had ICD implantation. REVIEW OF SYSTEMS: HEENT: Normal. GASTROINTESTINAL: No nausea or vomiting. GENITOURINARY: No dysuria. MUSCULOSKELETAL: Fatigue. CARDIOVASCULAR: As above. CHEST: Some dyspnea. ENDOCRINE: Normal. SKIN: Normal. PSYCHIATRIC: Normal. She had episode of syncope. PHYSICAL EXAMINATION: VITAL SIGNS: Blood pressure of 110/60 with pulse in the 60s, currently in sinus. GENERAL: Note distress. HEENT: Normal. NECK: No thyroid enlargement. LYMPHATICS: There is lymphadenopathy. RESPIRATORY: Decreased breath sounds bilaterally, but no crackles. CARDIOVASCULAR: Regular, decreased S1, S2. Left ICD incision is well healed. GASTROINTESTINAL: Active bowel sounds in all 4 quadrants. No tenderness. GENITOURINARY: Deferred. MUSCULOSKELETAL: All range of motion intact. SKIN: There is no ecchymosis. PSYCHIATRIC: The patient has good mood and good judgment. NEUROLOGIC: There are no focal neurologic deficits. TEST: ICD interrogation showed multiple episodes of VT, some of them were successfully treated with ATP. Again, ICD was reprogrammed to a maximum of 40 joule shock. Potassium 3.3, which has been supplemented. Creatinine of 1.9. ASSESSMENT AND PLAN: 1. Multiple ICD shocks so far as appropriate. 2. Multiple episodes of ventricular tachycardia with cardiomyopathy. 3. Hypokalemia. 4. Atrial fibrillation. PLAN: I did discuss in detail with Dr. Dorado and the patient. So far, the patient has been stable on amiodarone. We will continue amiodarone. We will switch to p.o. amiodarone. I took the liberty of switching metoprolol to Coreg 6.25 mg b.i.d. We will resume Coumadin and continue Plavix. I did discuss the option of ablation if the patient had recurrent episodes of VT despite usage of amiodarone; but, so far, the patient is stable on amiodarone and she is quite apprehensive about invasive procedure including ablation. We will see how she does with p.o. amiodarone. I will follow her closely in the outpatient setting. I would like to thank Dr. Gonsales and Dr. Dorado for letting me participate in the care of Ms. Roberto. We will resume diet and gentle hydration and hold the Lasix. Hopefully, creatinine will improve in the next 24-48 hours. MD MIGUEL Humphrey/ts , 08:46 AM , 08:54 AM
[2018-04-25] MEDS ORDERED: Amiodarone 200 MG Tablet PO SCH (09:45)
[2018-04-25] MEDS: Sod Chloride 0.9% Inj 1,000 ML IV.CONT SCH (10:08)
[2018-04-25] MEDS: Amiodarone 200 MG Tablet PO SCH ×2 (12:08→18:38)
--- NOTE | 2018-04-25 17:20 | CT ---
EXAM DATE: 04/25/2018 5:17 PM EST AGE/SEX: 83 years / Female INDICATIONS: Altered mental status. Fall this morning. CLINICAL DATA: This is the patient's initial encounter. Patient reports that signs and symptoms have been present for 1 day and indicates a pain score of 5/10. MEDICAL/SURGICAL HISTORY: Cardiovascular disease. Hypertension. MRSA. Defibrillator. RADIATION DOSE: 45.25 CTDI (mGy) COMPARISON: [facility] [place], CT HEAD W/O CONTRAST, 04/23/2018. . TECHNIQUE: CT of the head without contrast. Using automated exposure control and adjustment of the mA and/or kV according to patient size, radiation dose was kept as low as reasonably achievable to ob tain optimal diagnostic quality images. DICOM format image data is available electronically for revi ew and comparison. FINDINGS: Cerebrum: The ventricles are normal for age. No evidence of midline shift, mass lesion, hemorrhage or acute infarction. No extraaxial fluid collections are seen. Posterior Fossa: The cerebellum and brainstem are intact. The 4th ventricle is midline. The cerebe llopontine angle is unremarkable. Extracranial: The visualized portion of the orbits is intact. Skull: The calvaria is intact. No evidence of skull fracture. CONCLUSION: 1. Stable negative noncontrast head CT. . Electronically signed by: Onesimo Cortez MD Board Certified Radiologist 04/25/2018 5:19 PM EST
[2018-04-25 19:15] LABS: Baso # (Auto) 0.2 th/mm3 (0.0-0.2); Baso % (Auto) 1.4 % (0.0-2.0); Eos # (Auto) 0.1 th/mm3 (0.0-0.4); Eos % (Auto) 0.6 % (0.0-4.0); Hematocrit 37.6 % (35.0-46.0); Hemoglobin 11.1 gm/dL (11.6-15.3); Lymph # (Auto) 2.3 th/mm3 (1.0-4.8); Lymph % (Auto) 18.5 % (9.0-44.0); Mean Corpuscular Hemoglobin 19.3 pg (27.0-34.0); Mean Corpuscular Volume 65.2 fL (80.0-100.0); Mean Platelet Volume 8.7 fL (7.0-11.0); Mono # (Auto) 1.2 th/mm3 (0.0-0.9); Mono % (Auto) 9.8 % (0.0-8.0); Neut # (Auto) 8.5 th/mm3 (1.8-7.7); Neut % (Auto) 69.7 % (16.0-70.0); Platelet Count 254 th/mm3 (150-450); Red Blood Count 5.77 mil/mm3 (4.00-5.30); Red Cell Distribution Width 22.6 % (11.6-17.2); White Blood Count 12.2 th/mm3 (4.0-11.0)
[2018-04-25 19:22] LABS: INR 4.6 Ratio; Mean Corpuscular HGB Conc 29.6 % (32.0-36.0); Prothrombin Time 46.4 sec (9.8-11.6)
[2018-04-25 19:43] LABS: Albumin 3.6 g/dL (3.4-5.0); Calcium 9.3 mg/dL (8.5-10.1); Carbon Dioxide 22.5 meq/L (21.0-32.0); Potassium 3.7 meq/L (3.5-5.1)
[2018-04-25 19:50] LABS: Total Protein 6.5 g/dL (6.4-8.2)
[2018-04-25] MEDS: Carvedilol 6.25 MG Tablet PO SCH (20:10)
[2018-04-25] MEDS: Magnesium Oxide 400 MG Tablet PO SCH (20:10)
[2018-04-25 21:40] LABS: Bilirubin,Urine Negative (Negative); Clarity,Urine Hazy (Clear); Color,Urine Yellow (Yellw/Straw); Glucose,Urine (UA) Negative (Negative); Hyaline Casts,Urine 10 /lpf (0-3); Leukocyte Esterase,Urine Trace (Negative); Nitrite,Urine Negative (Negative); Specific Gravity,Urine 1.013 (1.002-1.035); Squamous Epithelial Cell,Urine 1 /hpf (0-5)
[2018-04-26] MEDS: Sod Chloride 0.9% Inj 1,000 ML IV.CONT SCH ×2 (02:48→14:46)
[2018-04-26] MEDS: Chlorhexidine Gluconate 2% 1 Pack (2 Cloths) TOPICAL SCH (03:19)
[2018-04-26 05:10] LABS: Baso % (Auto) 0.5 % (0.0-2.0); Eos # (Auto) 0.1 th/mm3 (0.0-0.4); Hematocrit 32.2 % (35.0-46.0); Hemoglobin 9.9 gm/dL (11.6-15.3); Lymph # (Auto) 1.7 th/mm3 (1.0-4.8); Mean Corpuscular Hemoglobin 19.9 pg (27.0-34.0); Mean Corpuscular Volume 64.9 fL (80.0-100.0); Mean Platelet Volume 8.9 fL (7.0-11.0); Mono # (Auto) 0.7 th/mm3 (0.0-0.9); Mono % (Auto) 8.3 % (0.0-8.0); Neut # (Auto) 6.3 th/mm3 (1.8-7.7); Neut % (Auto) 71.2 % (16.0-70.0); Platelet Count 193 th/mm3 (150-450); Red Blood Count 4.96 mil/mm3 (4.00-5.30); Red Cell Distribution Width 22.8 % (11.6-17.2); White Blood Count 8.9 th/mm3 (4.0-11.0)
[2018-04-26 05:13] LABS: Mean Corpuscular HGB Conc 30.6 % (32.0-36.0)
[2018-04-26 05:17] LABS: INR 4.3 Ratio; Prothrombin Time 43.2 sec (9.8-11.6)
[2018-04-26 05:38] LABS: Albumin 2.9 g/dL (3.4-5.0); Magnesium 2.2 mg/dL (1.5-2.5); Phosphorus 3.6 mg/dL (2.5-4.9); Potassium 3.6 meq/L (3.5-5.1); Total Protein 5.3 g/dL (6.4-8.2)
--- NOTE | 2018-04-26 08:44 | US ---
EXAM DATE: 04/26/2018 8:30 AM EST AGE/SEX: 83 years / Female INDICATIONS: Elevated liver function test. CLINICAL DATA: This is the patient's initial encounter. Patient reports that signs and symptoms have been present for 1 day and indicates a pain score of 0/10. MEDICAL/SURGICAL HISTORY: . Coronary artery disease. Cardiac defibrillator. Hypertension. MR SA. Ischemic cardiomyopathy. Paroxysmal atrial fibrillation. . Cardiac ablation treatment. AICD. COMPARISON: No prior exams available for comparison. MEASUREMENTS: Liver:__ 15.4 cm. Common Bile Duct:__ 3mm. Right Kidney:__ 9.8 x 4.6 x 4.8 cm. FINDINGS: Liver: Normal echogenicity without focal lesion or ductal dilatation. Portal Vein: Hepatopedal flow seen in portal vein. Common Duct: No intraluminal mass or stone visualized. Gallbladder: There is circumferential wall thickening measuring up to 5 mm in thickness. No evidence of stones or debris. Pancreas: The visualized portions are within normal limits Right Kidney: Normal echogenicity and cortical thickness. No mass or hydronephrosis. Other: None. CONCLUSION: 1. Circumferential wall thickening of the gallbladder without visible stones or debris. Findings are concerning for possible acalculous cholecystitis. 2. The liver parenchyma appears normal without evidence of mass or biliary obstruction. Electronically signed by: Aure Ceja MD Board Certified Radiologist 04/26/2018 8:43 AM EST
--- NOTE | 2018-04-26 09:00 | P.PNIM ---
Subjective Interval history: pt currently oriented and not hallucinating nursing and sister reported intermittent hallucination. she denies any cp/sob/headache/n/v/abdomen pain Physical Exam Vital signs: Last Vital Signs Temp 98.1 F 04/26/18 04:00 Pulse 71 04/26/18 07:00 Resp 25 H 04/26/18 07:00 BP 142/69 H 04/26/18 07:00 Pulse Ox 98 04/26/18 07:00 Narrative: heart irreg lung cta abd s/nt ext no edema Results Labs CBC & Chem 7: 04/26/18 03:46 04/26/18 03:46 Assessment and Plan Plan Ventricular tachycardia Multiple AICD discharges acute elevation of liver enzymes..?likely related to VT and underperfusion a/ckd 3. likely related to underperfusion during VT superatherapeutic inr History of CAD s/p stenting atrial fibrillation hypertension Dyslipidemia -Pt had recent echo EF 40% and nml lexiscan neg for ischemia in February per cardiology. -B[employer]ronik rep interrogated patient's device- she was in VT storm for approximately 2 hrs, received a total of 12 shocks (5 with success, 9 unsuccessful). Rep changed her settings so 30J (lower dose shocks) were eliminated and she will now receive 40J shock instead. He also reversed polarity of shocks as this appeared to be more effective at converting her rhythm.s -Troponin elevated but patient received multiple attempts at cardioversion/ defibrillation -stat CT brain 04/25. no cva -discussed with Dr Mckenzie at bedside. dc iv amio and started po amiodarone. hold off ablation as is pt request Continue home beta jaun. cont plavix. coumadin on hold for supratherapeutic level.Continue statin -gentle ivf and hold lasix. continue to monitor renal function, liver funtion, inr. overall improving. the mariangel and hepatic dysfunction are most likely playing a role in her intermittent hallucination sx's. f/u liver u/s. -PT and oob today. Progress Note: Quality VTE Deep Vein Thrombosis/Pulmonary Embolism Present on Admission: No
[2018-04-26] MEDS: Senna/Docusate Sodium 8.6/50 MG Tablet PO SCH ×2 (09:09→20:26)
[2018-04-26] MEDS: Magnesium Oxide 400 MG Tablet PO SCH ×2 (09:09→20:25)
[2018-04-26] MEDS: Amiodarone 200 MG Tablet PO SCH ×4 (09:10→17:16)
[2018-04-26] MEDS: Famotidine 20 MG Tablet PO SCH ×2 (09:10→20:25)
[2018-04-26] MEDS: Carvedilol 6.25 MG Tablet PO SCH ×2 (09:10→20:25)
[2018-04-27] MEDS: Chlorhexidine Gluconate 2% 1 Pack (2 Cloths) TOPICAL SCH (04:58)
[2018-04-27] MEDS: Sod Chloride 0.9% Inj 1,000 ML IV.CONT SCH (04:58)
[2018-04-27] MEDS: Magnesium Oxide 400 MG Tablet PO SCH (08:20)
[2018-04-27] MEDS: Amiodarone 200 MG Tablet PO SCH ×3 (08:20→17:34)
[2018-04-27] MEDS: Senna/Docusate Sodium 8.6/50 MG Tablet PO SCH ×2 (08:20→20:02)
[2018-04-27] MEDS: Carvedilol 6.25 MG Tablet PO SCH ×2 (08:21→20:02)
[2018-04-27] MEDS: Famotidine 20 MG Tablet PO SCH ×2 (08:21→20:02)
--- NOTE | 2018-04-27 09:25 | P.PNIM ---
Subjective Interval history: pt eating breakfast. was oob yesterday with poor balance. Physical Exam Vital signs: Last Vital Signs Temp 97.6 F 04/27/18 08:00 Pulse 74 04/27/18 08:00 Resp 20 04/27/18 08:00 BP 98/64 L 04/27/18 08:00 Pulse Ox 100 04/27/18 08:00 Narrative: heart irreg lung cta abd s/nt ext no edema Results Labs CBC & Chem 7: 04/26/18 03:46 04/26/18 03:46 Assessment and Plan Plan Ventricular tachycardia Multiple AICD discharges acute elevation of liver enzymes..?likely related to VT and underperfusion a/ckd 3. likely related to underperfusion during VT superatherapeutic inr History of CAD s/p stenting atrial fibrillation hypertension Dyslipidemia -Pt had recent echo EF 40% and nml lexiscan neg for ischemia in February per cardiology. -Biotronik rep interrogated patient's device- she was in VT storm for approximately 2 hrs, received a total of 12 shocks (5 with success, 9 unsuccessful). Rep changed her settings so 30J (lower dose shocks) were eliminated and she will now receive 40J shock instead. He also reversed polarity of shocks as this appeared to be more effective at converting her rhythm.s -Troponin elevated but patient received multiple attempts at cardioversion/ defibrillation -stat CT brain 04/25. no cva -discussed with Dr Mckenzie at bedside. dc iv amio and started po amiodarone. hold off ablation as is pt request Continue home beta jaun. cont plavix. coumadin on hold for supratherapeutic level.Continue statin -gentle ivf and holding lasix. continue to monitor renal function, liver funtion , inr. overall improving. the mariangel and hepatic dysfunction are most likely playing a role in her intermittent hallucination sx's. liver u/s questioned achalculous cholecystitis but pt is eating and denies any ruq abnomenal pain. Today's labwork is pending. Pt wants home with [facility] tomorrow...clarify with family if they can care for her or if she needs snf. -PT and oob today. Progress Note: Quality VTE Deep Vein Thrombosis/Pulmonary Embolism Present on Admission: No
[2018-04-27 10:55] LABS: INR 3.6 Ratio; Prothrombin Time 36.4 sec (9.8-11.6)
[2018-04-27 11:15] LABS: Alanine Aminotransferase 730 U/L (10-53); Albumin 2.6 g/dL (3.4-5.0); Anion Gap 8 meq/L (5-15); Aspartate Aminotransferase 640 U/L (15-37); Blood Urea Nitrogen 38 mg/dL (7-18); Calcium 7.6 mg/dL (8.5-10.1); Carbon Dioxide 24.4 meq/L (21.0-32.0); Chloride 110 meq/L (98-107); Glomerular Filtration Rate 41 mL/min (>89); Glucose,Random 116 mg/dL (74-106); Potassium 3.6 meq/L (3.5-5.1); Sodium 142 meq/L (136-145)
[2018-04-27 11:17] LABS: Alkaline Phosphatase 60 U/L (45-117); Total Protein 5.1 g/dL (6.4-8.2)
[2018-04-28] MEDS: Chlorhexidine Gluconate 2% 1 Pack (2 Cloths) TOPICAL SCH (07:00)
[2018-04-28 07:10] LABS: Anion Gap 9 meq/L (5-15); Aspartate Aminotransferase 404 U/L (15-37); Blood Urea Nitrogen 35 mg/dL (7-18); Calcium 8.2 mg/dL (8.5-10.1); Carbon Dioxide 24.3 meq/L (21.0-32.0); Chloride 109 meq/L (98-107); Glomerular Filtration Rate 53 mL/min (>89); Glucose,Random 87 mg/dL (74-106); Potassium 3.6 meq/L (3.5-5.1); Sodium 142 meq/L (136-145)
[2018-04-28 07:13] LABS: Alanine Aminotransferase 606 U/L (10-53); Alkaline Phosphatase 74 U/L (45-117); Total Protein 5.7 g/dL (6.4-8.2)
[2018-04-28] MEDS ORDERED: Amiodarone 200 MG Tablet PO SCH (09:00)
[2018-04-28] MEDS: Carvedilol 6.25 MG Tablet PO SCH (09:17)
[2018-04-28] MEDS: Senna/Docusate Sodium 8.6/50 MG Tablet PO SCH (09:18)
[2018-04-28] MEDS: Famotidine 20 MG Tablet PO SCH (09:18)
--- NOTE | 2018-04-28 14:41 | P.DS ---
DS: Providers Date of admission: 04/23/18 15:20 Primary care physician: UNKNOWN Consults: 04/23/18 15:04 Consult to Cardiology Stat Consulting Provider: Sagar Shaikh For STAT consult, spoke directly to:: ED physician spoke with Dr. Uribe Does the patient have a Marine Erector who follows them?: Yes Preferred Chemical Analyst:: Luis Miguel Uribe Reason for Consultation: V tach, AICD discharged Notified:: Office Spoke with:: RAVIN Date Notified:: 04/23/18 Time Notified:: 15:14 Comments:: E[facility] 04/23/18 17:07 Consult to Hospitalist Routine Consulting Provider: Frank Dorado Reason for Consultation: Continuation of medical management on 04/24/18 Notified:: Service Spoke with:: JACKIE Date Notified:: 04/23/18 Time Notified:: 17:13 Comments:: [facility] 04/24/18 07:54 Consult to Cardiology Routine Consulting Provider: Anel Mckenzie Does the patient have a Marine Erector who follows them?: Yes Preferred Chemical Analyst:: Anel Mckenzie Reason for Consultation: VT. EP consult to Dr. Mckenzie per Dr. Gonsales Notified:: Service Spoke with:: Velma Date Notified:: 04/24/18 Time Notified:: 08:03 Ordering Provider: EMILY 04/25/18 10:23 HUB Only Consult Order Routine Consulting Provider: [facility] Brief History from admission: 83yF with history of atrial fibrillation s/p ablation, CAD s/p stent in 2000, AICD placed at [facility] in 06/2017 (patient is uncertain why) who presented today when her AICD discharged. Her daughter says that the patient was sitting in a chair when she "grabbed her chest and fell over to the side". The patient says that she didn't feel a sudden pain in her chest but felt "like my heart was pounding really hard and like I was being pinched all over my face". She called 911 and was found to be in V tach (with a pulse) on EMS arrival. Her AICD reportedly fired a total of 3x while en route and she arrived to the ED still in stable VT. She was given an amiodarone bolus and received procedural sedation followed by 3 attempts at defibrillation, after which she went into junctional bradycardia. The patient denies any chest pain at present, denies fever or chills, cough, dyspnea, nausea or vomiting, or current palpitations. She also reports that last night she "must have rolled out of bed" and sustained an injury to the right side of her face, is not sure if she lost consciousness, and is on coumadin for A fib. Marine Erector is Dr. Uribe, last routine outpatient visit was 1-2 days ago. Biotronik AICD. Family history is non-contributory. DS: Summary Ventricular tachycardia Multiple AICD discharges acute elevation of liver enzymes..?likely related to VT and underperfusion a/ckd 3. likely related to underperfusion during VT superatherapeutic inr History of CAD s/p stenting atrial fibrillation hypertension Dyslipidemia -Pt had recent echo EF 40% and nml lexiscan neg for ischemia in February per cardiology. -[employer] rep interrogated patient's device- she was in VT storm for approximately 2 hrs, received a total of 12 shocks (5 with success, 9 unsuccessful). Rep changed her settings so 30J (lower dose shocks) were eliminated and she will now receive 40J shock instead. He also reversed polarity of shocks as this appeared to be more effective at converting her rhythm.s -Troponin elevated but patient received multiple attempts at cardioversion/ defibrillation -stat CT brain 04/25. no cva -discussed with Dr Mckenzie at bedside. dc iv amio and started po amiodarone. hold off ablation as is pt request Continue home beta jaun. cont plavix. coumadin on hold for supratherapeutic level.Continue statin -gentle ivf and holding lasix. continue to monitor renal function, liver funtion , inr. overall improving. the mariangel and hepatic dysfunction are most likely playing a role in her intermittent hallucination sx's. liver u/s questioned achalculous cholecystitis but pt is eating and denies any ruq abnomenal pain. Today's labwork is pending. - discharge to home with [facility] - see discharge orders Time Spent with Patient Total time spent providing and/or coordinating discharge services: Quality: VTE Deep Vein Thrombosis/Pulmonary Embolism Present on Admission: No Results Labs on day of discharge: Labs from last 24 hours 04/28/18 04:49 Sodium 142 Potassium 3.6 Chloride 109 H Carbon Dioxide 24.3 Anion Gap 9 BUN 35 H Creatinine 1.00 Estimated GFR 53 L Random Glucose 87 Calcium 8.2 L Total Bilirubin 1.8 H AST 404 H ALT 606 H Alkaline Phosphatase 74 Total Protein 5.7 L D Albumin 3.0 L Impressions ITS Impressions Chest X-Ray 04/23/18 12:58 CONCLUSION: , Cystic cardiomegaly otherwise negative Cervical Spine CT 04/23/18 13:15 CONCLUSION: Degenerative spondylosis without any significant compromise to the exiting nerve roots or the thecal sac. Head CT 04/25/18 16:30 CONCLUSION: 1. Stable negative noncontrast head CT. . Liver Ultrasound 04/26/18 00:00 CONCLUSION: 1. Circumferential wall thickening of the gallbladder without visible stones or debris. Findings are concerning for possible acalculous cholecystitis. 2. The liver parenchyma appears normal without evidence of mass or biliary obstruction. Discharge Plan Discharge Condition Condition: Critical Physicians Team Primary Care Provider: UNKNOWN, Attending Provider: Frank Dorado Other Providers: Sgaar Shaikh ; Frank Dorado ; Anel Mckenzie ; [facility] Rxs /Orders / Referrals /Forms Prescriptions: No Action furosemide [Lasix] 40 mg Tablet 40 mg PO BID RF: 0 atorvastatin 20 mg Tablet 20 mg PO DAILY RF: 0 lisinopril 20 mg Tablet 20 mg PO BID RF: 0 clonazepam [Klonopin] 0.5 mg Tablet 0.5 mg PO BID PRN (Reason: Anxiety/SOB) RF: 0 potassium chloride 10 mEq Tablet Extended Release 10 meq PO DAILY RF: 0 clopidogrel [Plavix] 75 mg Tablet 75 mg PO DAILY RF: 0 tramadol 50 mg Tablet 50 mg PO TID PRN (Reason: Pain) RF: 0 telmisartan [Micardis] 40 mg Tablet 40 mg PO DAILY RF: 0 warfarin [Coumadin] 5 mg Tablet 5 mg PO 5XW RF: 0 warfarin [Coumadin] 5 mg Tablet 2.5 mg PO 2XWEEK RF: 0 metoprolol tartrate 50 mg Tablet 50 mg PO BID RF: 0 losartan 100 mg Tablet 100 mg PO DAILY RF: 0 Referrals: UNKNOWN, [Primary Care Provider] - See Instructions Status ED Status: Left Department
--- NOTE | 2018-04-28 14:42 | P.DCO ---
Physical Therapy Order: Evaluate and treat, Improve ambulation and Strength and gait training Home Health Nursing Order: Medical education, Signs/symptoms of disease process and Nursing assessment with vital signs Case Management Consult Case Management Consult-Home Health: Yes I have seen patient Ariela Roberto on 04/28/18. My clinical findings support the need for the requested home health care services because: Limited mobility due to disease progression, Deconditioned with increased weakness, Medication compliance is questionable, Limited ability to care for self and Need for psychosocial assistance I certify that my clinical findings support that this patient is homebound because: Unsteady gait/balance, Unsafe to leave home unassisted, Need for psychosocial assistance and Unable to use public transportation
== END 2018-04-28 15:54 | disposition home health service (06) | DRG 315 ==
LOC: NEPE 12:29 → NEDA 15:20 → HIMC 17:01 → HCIS 04-26 14:37
PROVIDERS: ADMIT Hospitalist; ATTEND Hospitalist
CPT/HCPCS: 70450; 71010; 71045; 72125; 76705; 80048; 80053; 80076; 81001; 82140; 82247; 82248; 82948; 82962; 83520; 83735; 83880; 84100; 84439; 84443; 84484; 85025; 85610; 85730; 87641; 90765; 90766; 90775; 92960; 93005; 93306; 94150; 96365; 96366; 96375; 97162; 97164; 99291; J0171; J0282; J2001; J2405; J2704; J3010; J3475; J3480; J7030; J7060